=== PATIENT | male | born 1945 | race African-American/Black ===

== ENCOUNTER 2019-03-28 14:51 | Inpatient (IN) ==
[2019-03-28 15:53] LABS: Apearance,Urine CLOUDY (Clear); Bilirubin,Urine Negative (Negative); Blood, Urine Moderate mg/dL (Negative); Glucose,Urine (UA) Negative (Negative); Ketones,Urine Negative (Negative); Mucus,Urine Occasional /LPF (Occasional); Nitrite,Urine Negative (Negative); Protein,Urine 30 MG/DL; RBC,Urine 27 /HPF (0-4); Squamous Epithelial Cell,Urine Occasional /HPF (0-10); Transitional Epi Cells,Urine Occasional /HPF (<1); Urine Color Yellow (Yellow); Urine Specific Gravity 1.009 (1.001-1.035); Urine Urobilinogen < 2.0 EU/DL (0.2-1.0); WBC,Urine 91 /HPF (0-6)
[2019-03-28 15:54] LABS: Basophils # 0.1 10*3/uL (0.0-0.2); Basophils % 0.4 % (0.0-0.8); Eosinophils # 0.8 10*3/uL (0.0-0.87); Eosinophils % 5.8 % (0.00-10.9); Hematocrit 40.1 VOL% (42.0-52.0); Hemoglobin 11.8 GM/DL (14.0-18.0); Immature Granulocytes % 0.6 %; Immature Granulocytes Absolute 0.08 #; Lymphocytes # 1.2 10*3/uL (1.4-4.0); Lymphocytes % 8.4 % (21.2-54.2); Mean Corpuscular HGB Conc 29.4 GM/DL (32-36); Mean Corpuscular Volume 71.6 FL (87-102); Monocytes % 4.5 % (1.7-12.7); NRBC # 0.02 10*3/uL; Neutrophils % 80.3 % (38.7-73.9); Platelet Count 267 T/CUMM (130-400); Red Cell Distribution Width 22.9 % (9.3-17.3); White Blood Count 13.8 T/CUMM (4-12)
[2019-03-28 15:57] LABS: Anisocytosis Slight; Eosinophils 5 % (0-10); Lymphocytes 8 % (20-55); Macrocytosis Slight; Platelet Estimate Normal; Segmented Neutrophils 83 % (50-85); Total Cells Counted 100
[2019-03-28 16:07] LABS: Alanine Aminotransferase < 9 U/L (16-61); Albumin 3.6 G/DL (3.4-5.0); Alkaline Phosphatase 73 U/L (45-117); Aspartate Amino Transferase 10 U/L (0-37); Blood Urea Nitrogen 10 MG/DL (7-18); Calcium 8.8 MG/DL (8.5-10.1); Glucose 98 MG/DL (74-106); Osmolality,Calculated 271.8 MOS/KG (273-304); Total Protein 7.3 G/DL (6.4-8.3)
[2019-03-28] MEDS ORDERED: cefTRIAXone 1,000 MG in SODIUM CHLORIDE 0.9% 100 ML IV STA (16:07)
[2019-03-28] MEDS ORDERED: DEXTROSE 50% 25 GM/50 ML VIAL IV PRN (18:30)
[2019-03-28] MEDS ORDERED: ACETAMINOPHEN 325 MG TABLET PO PRN (18:30)
[2019-03-28] MEDS ORDERED: ONDANSETRON ODT 4 MG TABLET PO PRN (18:30)
[2019-03-28] MEDS ORDERED: GLUCAGON 1 MG VIAL IM PRN (18:30)
[2019-03-28] MEDS: ONDANSETRON 4 MG/2 ML VIAL IV PRN (19:16)
[2019-03-28] MEDS: SODIUM CHLORIDE 0.9% 1,000 ML IV SCH (19:17)
[2019-03-28] MEDS: BACLOFEN 10 MG TABLET PO SCH (21:12)
[2019-03-28] MEDS: CARBIDOPA/LEVODOPA 25-100 MG TABLET PO SCH (21:12)
[2019-03-28] MEDS: INSULIN REGULAR 100 UNIT/ML SUBCUT SCH (21:12)
[2019-03-28] MEDS: OXYBUTYNIN XL 5 MG TABLET PO SCH (21:12)
[2019-03-28] MEDS: ENOXAPARIN 40 MG/0.4 ML SYRINGE SUBCUT SCH (21:12)
[2019-03-28] MEDS: GABAPENTIN 400 MG CAPSULE PO SCH (21:12)
[2019-03-28] MEDS: POLYETHYLENE GLYCOL POWDER 17 GM PACK PO SCH (21:12)
[2019-03-28] MEDS: AMPICILLIN INJ 500 MG in SODIUM CHLORIDE 0.9% 100 ML IV SCH (21:12)
[2019-03-28] MEDS: LEVOFLOXACIN INJ 500 MG in PREMIX 1 EACH IV SCH (21:57)
[2019-03-28] MEDS: ACETAMINOPHEN 325 MG TABLET PO PRN (23:08)
[2019-03-28] MEDS: TEMAZEPAM 15 MG CAPSULE PO PRN (23:08)
[2019-03-29] MEDS: AMPICILLIN INJ 500 MG in SODIUM CHLORIDE 0.9% 100 ML IV SCH ×4 (03:28→21:37)
[2019-03-29 04:12] LABS: Calcium 8.1 MG/DL (8.5-10.1); Osmolality,Calculated 273.7 MOS/KG (273-304)
[2019-03-29 04:36] LABS: Basophils # 0.1 10*3/uL (0.0-0.2); Basophils % 0.4 % (0.0-0.8); Eosinophils # 0.7 10*3/uL (0.0-0.87); Eosinophils % 5.2 % (0.00-10.9); Hematocrit 36.6 VOL% (42.0-52.0); Immature Granulocytes % 0.5 %; Immature Granulocytes Absolute 0.06 #; Lymphocytes # 1.4 10*3/uL (1.4-4.0); Lymphocytes % 11.2 % (21.2-54.2); Mean Corpuscular HGB Conc 30.1 GM/DL (32-36); Mean Corpuscular Volume 72.2 FL (87-102); Monocytes % 7.5 % (1.7-12.7); Neutrophils % 75.2 % (38.7-73.9); Platelet Count 236 T/CUMM (130-400); Red Blood Count 5.07 MC/CUMM (3.8-5.5); Red Cell Distribution Width 22.5 % (9.3-17.3); White Blood Count 12.6 T/CUMM (4-12)
[2019-03-29] MEDS: ONDANSETRON 4 MG/2 ML VIAL IV PRN ×3 (04:52→20:51)
[2019-03-29] MEDS: SODIUM CHLORIDE 0.9% 1,000 ML IV SCH ×2 (04:53→15:07)
[2019-03-29 05:16] LABS: Eosinophils 5 % (0-10); Lymphocytes 12 % (20-55); Segmented Neutrophils 77 % (50-85); Total Cells Counted 100
[2019-03-29 05:18] LABS: Hypochromasia 1+; Platelet Estimate Normal; Polychromasia Few; Target Cells Few
[2019-03-29] MEDS ORDERED: MAGNESIUM SULF RIDER 2 GM in PREMIX 1 EACH IV PRN (06:55)
[2019-03-29] MEDS ORDERED: MAGNESIUM SULF RIDER 4 GM in PREMIX 1 EACH IV PRN (06:55)
[2019-03-29] MEDS: INSULIN REGULAR 100 UNIT/ML SUBCUT SCH ×4 (08:34→20:22)
[2019-03-29] MEDS ORDERED: POLYETHYLENE GLYCOL POWDER 17 GM PACK PO SCH (09:00)
[2019-03-29] MEDS ORDERED: TRIMETHOPRIM 100 MG TABLET PO SCH (09:00)
[2019-03-29] MEDS: FERROUS SULFATE 325 MG TABLET PO SCH (09:49)
[2019-03-29] MEDS: GABAPENTIN 400 MG CAPSULE PO SCH ×3 (09:49→20:22)
[2019-03-29] MEDS: OXYBUTYNIN XL 5 MG TABLET PO SCH ×3 (09:49→20:22)
[2019-03-29] MEDS: BACLOFEN 10 MG TABLET PO SCH ×3 (09:49→20:22)
[2019-03-29] MEDS: PANTOPRAZOLE 40 MG TABLET PO SCH (09:49)
[2019-03-29] MEDS: CHOLECALCIFEROL 1,000 UNIT TABLET PO SCH (09:49)
[2019-03-29] MEDS: CARBIDOPA/LEVODOPA 25-100 MG TABLET PO SCH ×3 (09:50→20:21)
[2019-03-29] MEDS: POLYETHYLENE GLYCOL POWDER 17 GM PACK PO SCH (09:50)
[2019-03-29] MEDS: LEVOFLOXACIN INJ 500 MG in PREMIX 1 EACH IV SCH (20:21)
[2019-03-29] MEDS: ENOXAPARIN 40 MG/0.4 ML SYRINGE SUBCUT SCH (20:22)
[2019-03-29] MEDS: TEMAZEPAM 15 MG CAPSULE PO PRN (22:09)
[2019-03-30] MEDS: SODIUM CHLORIDE 0.9% 1,000 ML IV SCH ×2 (02:03→21:14)
[2019-03-30] MEDS: AMPICILLIN INJ 500 MG in SODIUM CHLORIDE 0.9% 100 ML IV SCH ×4 (03:25→21:01)
[2019-03-30 05:58] LABS: Calcium 7.9 MG/DL (8.5-10.1); Osmolality,Calculated 275.4 MOS/KG (273-304)
[2019-03-30 06:15] LABS: Basophils % 0.3 % (0.0-0.8); Eosinophils % 10.5 % (0.00-10.9); Hematocrit 35.5 VOL% (42.0-52.0); Immature Granulocytes % 0.4 %; Immature Granulocytes Absolute 0.04 #; Lymphocytes # 1.6 10*3/uL (1.4-4.0); Lymphocytes % 16.5 % (21.2-54.2); Mean Corpuscular Volume 73.2 FL (87-102); Monocytes % 6.9 % (1.7-12.7); Neutrophils % 65.4 % (38.7-73.9); Platelet Count 251 T/CUMM (130-400); Red Blood Count 4.85 MC/CUMM (3.8-5.5); Red Cell Distribution Width 22.9 % (9.3-17.3); White Blood Count 9.5 T/CUMM (4-12)
[2019-03-30 06:17] LABS: Hemoglobin 10.3 GM/DL (14.0-18.0)
[2019-03-30 06:42] LABS: Eosinophils 7 % (0-10); Hypochromasia 1+; Lymphocytes 24 % (20-55); Ovalocytes Slight; Platelet Estimate Adequate; Segmented Neutrophils 65 % (50-85); Total Cells Counted 100
[2019-03-30] MEDS: INSULIN REGULAR 100 UNIT/ML SUBCUT SCH ×4 (08:56→20:51)
[2019-03-30] MEDS: POLYETHYLENE GLYCOL POWDER 17 GM PACK PO SCH (09:00)
[2019-03-30] MEDS ORDERED: TRIMETHOPRIM 100 MG TABLET PO SCH (09:00)
[2019-03-30] MEDS: CARBIDOPA/LEVODOPA 25-100 MG TABLET PO SCH ×3 (09:02→20:02)
[2019-03-30] MEDS: CHOLECALCIFEROL 1,000 UNIT TABLET PO SCH (09:02)
[2019-03-30] MEDS: GABAPENTIN 400 MG CAPSULE PO SCH ×3 (09:03→20:03)
[2019-03-30] MEDS: FERROUS SULFATE 325 MG TABLET PO SCH (09:03)
[2019-03-30] MEDS: BACLOFEN 10 MG TABLET PO SCH ×3 (09:03→20:02)
[2019-03-30] MEDS: PANTOPRAZOLE 40 MG TABLET PO SCH (09:03)
[2019-03-30] MEDS: OXYBUTYNIN XL 5 MG TABLET PO SCH ×3 (09:03→20:03)
[2019-03-30] MEDS: ACETAMINOPHEN 325 MG TABLET PO PRN (13:01)
[2019-03-30] MEDS: ONDANSETRON 4 MG/2 ML VIAL IV PRN (16:11)
[2019-03-30] MEDS: ENOXAPARIN 40 MG/0.4 ML SYRINGE SUBCUT SCH (20:02)
[2019-03-30] MEDS: LEVOFLOXACIN INJ 500 MG in PREMIX 1 EACH IV SCH (20:02)
[2019-03-30] MEDS: TEMAZEPAM 15 MG CAPSULE PO PRN (21:01)
[2019-03-31] MEDS: AMPICILLIN INJ 500 MG in SODIUM CHLORIDE 0.9% 100 ML IV SCH ×3 (02:44→14:46)
[2019-03-31 05:29] LABS: Basophils % 0.4 % (0.0-0.8); Eosinophils # 0.7 10*3/uL (0.0-0.87); Eosinophils % 8.7 % (0.00-10.9); Hematocrit 36.7 VOL% (42.0-52.0); Hemoglobin 10.9 GM/DL (14.0-18.0); Immature Granulocytes % 0.4 %; Immature Granulocytes Absolute 0.03 #; Lymphocytes # 1.3 10*3/uL (1.4-4.0); Lymphocytes % 15.3 % (21.2-54.2); Mean Corpuscular HGB Conc 29.7 GM/DL (32-36); Mean Corpuscular Volume 72.7 FL (87-102); Monocytes % 6.7 % (1.7-12.7); Neutrophils % 68.5 % (38.7-73.9); Platelet Count 218 T/CUMM (130-400); Red Blood Count 5.05 MC/CUMM (3.8-5.5); Red Cell Distribution Width 22.7 % (9.3-17.3); White Blood Count 8.2 T/CUMM (4-12)
[2019-03-31 05:40] LABS: Calcium 8.3 MG/DL (8.5-10.1)
[2019-03-31 05:41] LABS: Osmolality,Calculated 275.4 MOS/KG (273-304)
[2019-03-31 05:52] LABS: Anisocytosis 1+; Hypochromasia 1+; Microcytosis 1+; Ovalocytes Slight
[2019-03-31 05:53] LABS: Platelet Estimate Normal
[2019-03-31] MEDS: INSULIN REGULAR 100 UNIT/ML SUBCUT SCH ×3 (08:53→16:06)
[2019-03-31] MEDS: CARBIDOPA/LEVODOPA 25-100 MG TABLET PO SCH ×2 (08:54→14:47)
[2019-03-31] MEDS: POLYETHYLENE GLYCOL POWDER 17 GM PACK PO SCH (08:54)
[2019-03-31] MEDS: BACLOFEN 10 MG TABLET PO SCH ×2 (08:55→14:47)
[2019-03-31] MEDS: PANTOPRAZOLE 40 MG TABLET PO SCH (08:55)
[2019-03-31] MEDS: FERROUS SULFATE 325 MG TABLET PO SCH (08:55)
[2019-03-31] MEDS: CHOLECALCIFEROL 1,000 UNIT TABLET PO SCH (08:55)
[2019-03-31] MEDS: GABAPENTIN 400 MG CAPSULE PO SCH ×2 (08:55→14:47)
[2019-03-31] MEDS: OXYBUTYNIN XL 5 MG TABLET PO SCH ×2 (08:55→14:47)
[2019-03-31] MEDS ORDERED: ERTAPENEM 1,000 MG in SODIUM CHLORIDE 0.9% 100 ML IV ONE (15:03)
[2019-03-31 17:01] VITALS: BP 138/78
== END 2019-03-31 18:10 | disposition home health service (06) | DRG 699 ==
LOC: N.ED 14:51 → SUATTDRO 16:49 → N.EDINP 16:49 → SUPCPDRO 16:49 → N.2E 17:14
PROVIDERS: ADMIT Internal Medicine; ATTEND Internal Medicine

== ENCOUNTER 2019-05-14 21:58 | Inpatient (IN) ==
[2019-05-14] MEDS ORDERED: SODIUM CHLORIDE 0.9% 1,000 ML IV STA (22:36)
[2019-05-14] MEDS ORDERED: ONDANSETRON 4 MG/2 ML VIAL IV STA (22:36)
[2019-05-14 23:50] LABS: Basophils # 0.1 10*3/uL (0.0-0.2); Basophils % 0.4 % (0.0-0.8); Eosinophils # 0.8 10*3/uL (0.0-0.87); Eosinophils % 6.2 % (0.00-10.9); Hematocrit 41.1 VOL% (42.0-52.0); Hemoglobin 12.4 GM/DL (14.0-18.0); Immature Granulocytes % 0.6 %; Immature Granulocytes Absolute 0.08 #; Lymphocytes # 1.3 10*3/uL (1.4-4.0); Lymphocytes % 10.3 % (21.2-54.2); Mean Corpuscular HGB Conc 30.2 GM/DL (32-36); Mean Corpuscular Volume 71.6 FL (87-102); Monocytes % 5.5 % (1.7-12.7); Platelet Count 279 T/CUMM (130-400); Red Blood Count 5.74 MC/CUMM (3.8-5.5); Red Cell Distribution Width 22.5 % (9.3-17.3); White Blood Count 12.7 T/CUMM (4-12)
[2019-05-15 00:18] LABS: Alanine Aminotransferase < 6 U/L (16-61); Albumin 3.4 G/DL (3.4-5.0); Alkaline Phosphatase 75 U/L (45-117); Aspartate Amino Transferase 8 U/L (0-37); Blood Urea Nitrogen 14 MG/DL (7-18); Calcium 8.9 MG/DL (8.5-10.1); Glucose 101 MG/DL (74-106); Osmolality,Calculated 277.5 MOS/KG (273-304); Total Protein 7.8 G/DL (6.4-8.3)
[2019-05-15 01:06] LABS: Amorphous Crystals,Urine Occasional /HPF (Few); Apearance,Urine Slightly Hazy (Clear); Bilirubin,Urine Negative (Negative); Blood, Urine Moderate mg/dL (Negative); Calcium Oxalate Crystals,Urine Occasional /HPF (Few); Glucose,Urine (UA) Negative (Negative); Ketones,Urine Negative (Negative); Mucus,Urine Occasional /LPF (Occasional); Nitrite,Urine Negative (Negative); Protein,Urine Negative; RBC,Urine 28 /HPF (0-4); Squamous Epithelial Cell,Urine Occasional /HPF (0-10); Urine Color Yellow (Yellow); Urine Specific Gravity 1.006 (1.001-1.035); Urine Urobilinogen < 2.0 EU/DL (0.2-1.0); WBC,Urine 115 /HPF (0-6)
[2019-05-15] MEDS ORDERED: cefTRIAXone 1,000 MG in SODIUM CHLORIDE 0.9% 100 ML IV STA (01:16)
[2019-05-15] MEDS ORDERED: ACETAMINOPHEN 325 MG TABLET ONE (02:25)
[2019-05-15] MEDS ORDERED: ACETAMINOPHEN 325 MG TABLET PO ONE (02:26)
[2019-05-15] MEDS ORDERED: DEXTROSE 50% 25 GM/50 ML VIAL IV PRN (02:37)
[2019-05-15] MEDS ORDERED: GLUCAGON 1 MG VIAL IM PRN (02:37)
[2019-05-15] MEDS: ONDANSETRON 4 MG/2 ML VIAL IV PRN ×4 (02:51→21:58)
[2019-05-15] MEDS ORDERED: ERTAPENEM 1,000 MG in SODIUM CHLORIDE 0.9% 100 ML IV SCH (03:00)
[2019-05-15] MEDS ORDERED: AMPICILLIN/SULBACTAM 1,500 MG in SODIUM CHLORIDE 0.9% 100 ML IV SCH (04:00)
[2019-05-15] MEDS: HYOSCYAMINE 0.125 MG TABLET PO SCH ×5 (06:35→21:58)
[2019-05-15] MEDS ORDERED: INSULIN REGULAR 100 UNIT/ML SUBCUT SCH (07:30)
[2019-05-15 07:59] LABS: Basophils % 0.4 % (0.0-0.8); Eosinophils # 0.6 10*3/uL (0.0-0.87); Eosinophils % 5.5 % (0.00-10.9); Hematocrit 39.7 VOL% (42.0-52.0); Immature Granulocytes % 0.6 %; Immature Granulocytes Absolute 0.06 #; Lymphocytes % 9.2 % (21.2-54.2); Mean Corpuscular Volume 72.2 FL (87-102); Monocytes % 5.1 % (1.7-12.7); NRBC # 0.02 10*3/uL; Neutrophils % 79.2 % (38.7-73.9); Platelet Count 262 T/CUMM (130-400); Red Cell Distribution Width 22.2 % (9.3-17.3); White Blood Count 10.7 T/CUMM (4-12)
[2019-05-15 08:00] LABS: Hemoglobin 11.9 GM/DL (14.0-18.0)
[2019-05-15] MEDS ORDERED: TRIMETHOPRIM 100 MG TABLET PO SCH (09:00)
[2019-05-15 09:09] LABS: Hypochromasia 1+; Platelet Estimate Adequate
[2019-05-15] MEDS: CARBIDOPA/LEVODOPA 25-100 MG TABLET PO SCH ×3 (09:28→21:58)
[2019-05-15] MEDS: CHOLECALCIFEROL 1,000 UNIT TABLET PO SCH (09:29)
[2019-05-15] MEDS: ACETAMINOPHEN 325 MG TABLET PO PRN ×2 (09:29→22:47)
[2019-05-15] MEDS: GABAPENTIN 400 MG CAPSULE PO SCH ×3 (09:29→21:58)
[2019-05-15] MEDS: BACLOFEN 10 MG TABLET PO SCH ×3 (09:30→21:58)
[2019-05-15] MEDS: OXYBUTYNIN XL 5 MG TABLET PO SCH ×3 (09:30→21:58)
[2019-05-15] MEDS: POLYETHYLENE GLYCOL POWDER 17 GM PACK PO SCH (09:30)
[2019-05-15] MEDS: PANTOPRAZOLE 40 MG TABLET PO SCH (09:30)
[2019-05-15] MEDS: ENOXAPARIN 40 MG/0.4 ML SYRINGE SUBCUT SCH (09:30)
[2019-05-15] MEDS: FERROUS SULFATE 325 MG TABLET PO SCH (09:30)
[2019-05-15] MEDS: BISACODYL 10 MG SUPP RECTAL SCH (09:30)
[2019-05-15] MEDS: PIPERACILLIN/TAZOBACTAM 3,375 MG in SODIUM CHLORIDE 0.9% 100 ML IV SCH ×2 (11:25→18:10)
[2019-05-16] MEDS: ACETAMINOPHEN 325 MG TABLET PO PRN (00:28)
[2019-05-16] MEDS: PIPERACILLIN/TAZOBACTAM 3,375 MG in SODIUM CHLORIDE 0.9% 100 ML IV SCH ×3 (01:28→17:59)
[2019-05-16] MEDS: HYOSCYAMINE 0.125 MG TABLET PO SCH ×6 (01:29→21:25)
[2019-05-16 04:48] LABS: Basophils % 0.5 % (0.0-0.8); Eosinophils # 0.7 10*3/uL (0.0-0.87); Eosinophils % 8.4 % (0.00-10.9); Hematocrit 41.7 VOL% (42.0-52.0); Hemoglobin 12.4 GM/DL (14.0-18.0); Immature Granulocytes % 0.5 %; Immature Granulocytes Absolute 0.04 #; Lymphocytes # 1.3 10*3/uL (1.4-4.0); Lymphocytes % 15.3 % (21.2-54.2); Mean Corpuscular HGB Conc 29.7 GM/DL (32-36); Mean Corpuscular Volume 72.8 FL (87-102); Monocytes % 6.5 % (1.7-12.7); Neutrophils % 68.8 % (38.7-73.9); Platelet Count 254 T/CUMM (130-400); Red Blood Count 5.73 MC/CUMM (3.8-5.5); Red Cell Distribution Width 22.8 % (9.3-17.3); White Blood Count 8.6 T/CUMM (4-12)
[2019-05-16] MEDS: CARBIDOPA/LEVODOPA 25-100 MG TABLET PO SCH ×3 (09:08→20:38)
[2019-05-16] MEDS: PANTOPRAZOLE 40 MG TABLET PO SCH (09:08)
[2019-05-16] MEDS: FERROUS SULFATE 325 MG TABLET PO SCH (09:08)
[2019-05-16] MEDS: GABAPENTIN 400 MG CAPSULE PO SCH ×3 (09:08→20:39)
[2019-05-16] MEDS: BACLOFEN 10 MG TABLET PO SCH ×3 (09:08→20:38)
[2019-05-16] MEDS: CHOLECALCIFEROL 1,000 UNIT TABLET PO SCH (09:08)
[2019-05-16] MEDS: ENOXAPARIN 40 MG/0.4 ML SYRINGE SUBCUT SCH (09:09)
[2019-05-16] MEDS: POLYETHYLENE GLYCOL POWDER 17 GM PACK PO SCH (09:09)
[2019-05-16] MEDS: OXYBUTYNIN XL 5 MG TABLET PO SCH ×3 (09:12→20:39)
[2019-05-16] MEDS ORDERED: hydrALAZINE 20 MG/1 ML VIAL IV PRN (11:44)
[2019-05-16] MEDS ORDERED: BISACODYL 10 MG SUPP RECTAL PRN (18:28)
[2019-05-17] MEDS: HYOSCYAMINE 0.125 MG TABLET PO SCH ×4 (01:53→16:02)
[2019-05-17] MEDS: PIPERACILLIN/TAZOBACTAM 3,375 MG in SODIUM CHLORIDE 0.9% 100 ML IV SCH ×2 (01:54→11:11)
[2019-05-17] MEDS: POLYETHYLENE GLYCOL POWDER 17 GM PACK PO SCH (09:00)
[2019-05-17] MEDS: BISACODYL 10 MG SUPP RECTAL SCH (11:00)
[2019-05-17] MEDS: CHOLECALCIFEROL 1,000 UNIT TABLET PO SCH (11:09)
[2019-05-17] MEDS: FERROUS SULFATE 325 MG TABLET PO SCH (11:09)
[2019-05-17] MEDS: PANTOPRAZOLE 40 MG TABLET PO SCH (11:10)
[2019-05-17] MEDS: ENOXAPARIN 40 MG/0.4 ML SYRINGE SUBCUT SCH (11:10)
[2019-05-17] MEDS: OXYBUTYNIN XL 5 MG TABLET PO SCH ×2 (11:10→16:02)
[2019-05-17] MEDS: BACLOFEN 10 MG TABLET PO SCH ×2 (11:10→16:02)
[2019-05-17] MEDS: GABAPENTIN 400 MG CAPSULE PO SCH ×2 (11:10→16:02)
[2019-05-17] MEDS: CARBIDOPA/LEVODOPA 25-100 MG TABLET PO SCH ×2 (11:10→16:02)
[2019-05-17] MEDS ORDERED: AMOXICILLIN/CLAV 875 MG TABLET PO ONE (16:00)
[2019-05-17 19:17] VITALS: BP 135/65
== END 2019-05-17 17:36 | disposition home or self-care (01) | DRG 699 ==
LOC: EDBD → EDUNIT# → N.ED 21:58 → N.EDINP 05-15 02:08 → SUATTDRO 05-15 02:08 → N.5E 05-15 02:25
PROVIDERS: ADMIT Family Medicine; ATTEND Hospitalist